=== PATIENT | female | born 1940 | race Caucasian/White ===

== ENCOUNTER → 2019-12-02 | Outpatient (CLI) | payer MEDICARE, OTHER | LOC: RAD 13:32 | PROVIDERS: ATTEND Family Medicine | DX: Z01.818 Encounter for other preprocedural examination (principal); H25.11 Age-related nuclear cataract, right eye | CPT/HCPCS: 93005 ==

== ENCOUNTER → 2019-12-22 | Day surgery (SDC) | payer MEDICARE, OTHER ==
[~2019-12-22] MED LIST: AMLODIPINE BESY10 MG PO; ASPIRIN81 MG PO; CARVEDILOL12.5 MG PO; CRESTOR10 MG PO; LISINOPRIL10 MG PO; NEXIUM40 MG PO; OR PHACO EYE KIT ONE; PREOP PHACO EYE KIT ONE; TRIAMTERENE-HCTZ1 EA PO; VIT B12 PO; VIT D3 PO
[2019-12-22 12:00] VITALS: BP 123/56
== END | disposition home or self-care (01) ==
LOC: OR 08:45
PROVIDERS: ATTEND Ophthalmology
DX: H25.11 Age-related nuclear cataract, right eye (principal); I10 Essential (primary) hypertension; E78.5 Hyperlipidemia, unspecified; R00.1 Bradycardia, unspecified; K21.9 Gastro-esophageal reflux disease without esophagitis; Z88.6 Allergy status to analgesic agent; Z91.041 Radiographic dye allergy status; Z01.812 Encounter for preprocedural laboratory examination; Z11.59 Encounter for screening for other viral diseases; Z79.82 Long term (current) use of aspirin
CPT/HCPCS: 66984; U0002; V2632

== ENCOUNTER → 2020-01-05 | Day surgery (SDC) | payer MEDICARE, OTHER ==
[~2020-01-05] MED LIST changes: +FENTANYL CITRATE/PF 100MCG/2 ML INJ ONE; +MIDAZOLAM HCL 2 MG/2 ML VIAL ONE
[2020-01-05 11:10] VITALS: BP 151/74
== END | disposition home or self-care (01) ==
LOC: OR 08:02
PROVIDERS: ATTEND Ophthalmology
DX: H25.12 Age-related nuclear cataract, left eye (principal); J45.909 Unspecified asthma, uncomplicated; I10 Essential (primary) hypertension; K21.9 Gastro-esophageal reflux disease without esophagitis; E78.5 Hyperlipidemia, unspecified; Z88.6 Allergy status to analgesic agent; Z91.041 Radiographic dye allergy status; Z01.812 Encounter for preprocedural laboratory examination; Z11.59 Encounter for screening for other viral diseases; Z79.82 Long term (current) use of aspirin; Z87.442 Personal history of urinary calculi
CPT/HCPCS: 66984; J2250; J3010; U0002; V2632